=== PATIENT | male | born 1995 | race Caucasian/White ===

== ENCOUNTER 2016-08-13 10:17 | Emergency (ER) | payer OTHER ==
[~2016-08-13] VITALS: Ht 170.2 cm; Wt 91.5 kg
[2016-08-13 10:19] VITALS: Ht 170.2 cm; Wt 91.5 kg
[2016-08-13] MEDS ORDERED: IBUPROFEN 600 MG TAB PO ONE (11:00)
[2016-08-13] MEDS ORDERED: CEPHALEXIN 500 MG CAP PO ONE (11:00)
[2016-08-13] MEDS ORDERED: LIDOCAINE 1% (MDV) 20 ML INJ SC ONE (11:00)
[2016-08-13] MEDS ORDERED: DOXY100T20 PO (11:31)
[2016-08-13] MEDS ORDERED: IBUP-1542 PO (11:31)
--- NOTE | 2016-08-13 11:37 | ERD ---
ER Documentation Chief Complaint Date/Time DATE: 08/13/16 TIME: 11:35 Chief Complaint rt big toe ingrown toe nail HPI This 21-year-old male complains of redness and swelling associated the ingrown toenails right big toe worsening over the last month. He has a history of treatment for ingrown nail approximately a year ago. Denies fevers, vomiting, shortness breath chest pain or history of trauma. ROS All systems reviewed and are negative except as per history of present illness. Medications Home Meds Active Scripts Doxycycline Hyclate* (Doxycycline Hyclate*) 100 Mg Tablet.dr, 100 MG PO BID for 10 Days, TAB Prov:QUYNH LO MD 08/13/16 Ibuprofen* (Motrin*) 600 Mg Tab, 600 MG PO Q6, #15 TAB Prov:QUYNH LO MD 08/13/16 Reported Medications [None] No Conflict Check 04/26/13 Allergies Allergies: Coded Allergies: No Known Allergy (Unverified , 04/26/13) PMhx/Soc Medical and Surgical Hx: pt denies Medical Hx, pt denies Surgical Hx History of Surgery: No Anesthesia Reaction: No Hx Neurological Disorder: No Hx Respiratory Disorders: No Hx Cardiac Disorders: No Hx Psychiatric Problems: No Hx Miscellaneous Medical Probl: No Hx Alcohol Use: No Hx Substance Use: No Hx Tobacco Use: No Smoking Status: Never smoker Physical Exam Vitals Vital Signs Date Time Temp Pulse Resp B/P Pulse Ox O2 Delivery O2 Flow Rate FiO2 08/13/16 10:19 97.4 71 16 137/79 98 Physical Exam Const: [] Alert, [id number] per Head: Atraumatic Eyes: Normal Conjunctiva ENT: Normal External Ears, Nose and Mouth. Neck: Full range of motion..~ No meningismus. Resp: Clear to auscultation bilaterally Cardio: Regular rate and rhythm, no murmurs Abd: Soft, non tender, non distended. Normal bowel sounds Skin: No petechiae or rashes Back: No midline or flank tenderness Ext: No cyanosis, or edema. There is some redness and needs significant swelling on the bilateral edges of the right big toenail associated with ingrown toenails. There is no bony tenderness or deformities. There is no discharge or bleeding Neur: Awake and alert Psych: Normal Mood and Affect Results 24 hrs Current Medications Medications (Trade) Dose Ordered Sig/Jordan Route PRN Reason Start Time Stop Time Status Last Admin Dose Admin Cephalexin (Keflex) 500 mg ONCE ONCE PO 08/13/16 11:00 08/13/16 11:01 DC 08/13/16 11:08 Ibuprofen (Motrin) 600 mg ONCE ONCE PO 08/13/16 11:00 08/13/16 11:01 DC 08/13/16 11:08 Lidocaine (Xylocaine 1% (Mdv) 20 ml) 20 ml ONCE ONCE SC 08/13/16 11:00 08/13/16 11:01 DC Procedures/MDM Patient has signs and symptoms of significantly inflamed possibly infected ingrown toenail on the right big toe. Signs and symptoms do not suggest bony tenderness of osteomyelitis, or abscess. Procedure note-patient was given Keflex 500 mg of mouth and ibuprofen by mouth. 8 cc of lidocaine was used to perform a digital block. Anesthesia was obtained. Bilateral edges of the nail which are ingrown or removed using clamps and scissors. The wound bed was debrided. The wound was dressed and patient tolerated procedure well. Patient was placed in a right foot postop shoe and an wound was dressed. Patient will be discharged home with prescription ibuprofen and doxycycline instructions for wound care. He will be referred to podiatry for further evaluation management for recurrent symptoms. He should return sooner for worsening redness, fevers, new worsening symptoms Departure Diagnosis: Primary Impression: Ingrown nail Condition: Stable Patient Instructions: Ingrown Toenail, Excised Referrals: CRESCENCIO QUINTANA DPBHAVESH GRIFFIN DPNOAH MCDONALD DPSung Additional Instructions: Recheck for worsening redness, swelling, new worsening symptoms. Allow the nail to go on top of skin. See podiatry for recurrent symptoms. QUYNH LO MD Aug 13, 2016 11:37
== END 2016-08-13 12:07 | disposition home or self-care (01) ==
LOC: FTE 10:17
DX: L60.0 Ingrowing nail (principal)
CPT/HCPCS: 11765; Z7502; Z7610

== ENCOUNTER 2017-01-25 10:01 | Emergency (ER) | payer OTHER ==
[~2017-01-25] VITALS: Ht 167.6 cm; Wt 87.9 kg
[~2017-01-25 10:01] MED LIST: DOXY100T20 PO; IBUP-1542 PO
[2017-01-25 10:02] VITALS: Ht 167.6 cm; Wt 87.9 kg
[2017-01-25] MEDS ORDERED: TRIMETHOPRIM/SULFAMETHOX (DS) TAB PO ONE (10:30)
[2017-01-25] MEDS ORDERED: LIDOCAINE 1% (MDV) 20 ML INJ SC ONE (10:30)
[2017-01-25] MEDS ORDERED: CEPHALEXIN 500 MG CAP PO ONE (10:30)
--- NOTE | 2017-01-25 10:46 | ERD ---
ER Documentation Chief Complaint Chief Complaint ingrown toenail HPI 21-year-old male presents with recurring right-sided great toe ingrown toe nail. Patient has been dealing with pain for about 2 months now and is now become more swollen, erythematous and warm. 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 He does not have any history of diabetes or trauma fevers or chills. ROS All systems reviewed and are negative except as per history of present illness. Medications Home Meds Active Scripts Ibuprofen* (Motrin*) 600 Mg Tab, 600 MG PO Q6, #30 TAB Prov:ELLIE PRAJAPATI PA-C 01/25/17 Sulfamethoxazole/Trimethoprim* (Bactrim Ds* Tablet) 1 Each Tablet, 1 TAB PO BID , #14 TAB Prov:ELLIE PRAJAPATI PA-C 01/25/17 Cephalexin* (Keflex*) 500 Mg Capsule, 500 MG PO QID for 7 Days, CAP Prov:ELLIE PRAJAPATI PA-C 01/25/17 Doxycycline Hyclate* (Doxycycline Hyclate*) 100 Mg Tablet.dr, 100 MG PO BID for 10 Days, TAB Prov:QUYNH LO MD 08/13/16 Ibuprofen* (Motrin*) 600 Mg Tab, 600 MG PO Q6, #15 TAB Prov:QUYNH LO MD 08/13/16 Reported Medications [None] No Conflict Check 04/26/13 Allergies Allergies: Coded Allergies: No Known Allergy (Unverified , 04/26/13) PMhx/Soc History of Surgery: No Anesthesia Reaction: No Hx Neurological Disorder: No Hx Respiratory Disorders: No Hx Cardiac Disorders: No Hx Psychiatric Problems: No Hx Miscellaneous Medical Probl: No Hx Alcohol Use: No Hx Substance Use: No Hx Tobacco Use: No Physical Exam Vitals Vital Signs Date Time Temp Pulse Resp B/P Pulse Ox O2 Delivery O2 Flow Rate FiO2 01/25/17 10:02 98.1 93 18 147/88 99 Physical Exam General: Well-developed, well-nourished. The patient appears in no acute distress. HEENT: Head is normocephalic, atraumatic. No scleral icterus. Neck: Supple. Nontender. Lungs: Clear to auscultation. Normal air movement. Heart: Regular rate and rhythm. S1 and S2 are normal. No murmurs, gallops, or rubs. Abdomen: Nondistended. Extremities: No clubbing or cyanosis. Moving extremities x 4. No weakness. Neurologic: Alert and oriented 3. No focal deficits. Normal speech and gait. Skin: Large ingrown toenail of the right great toe that is on the medial aspect , there is warmth, erythema and induration around the nailbed. Capillary refill less than 2 seconds. Results 24 hrs Current Medications Medications (Trade) Dose Ordered Sig/Jordan Route PRN Reason Start Time Stop Time Status Last Admin Dose Admin Cephalexin (Keflex) 500 mg ONCE ONCE PO 01/25/17 10:30 01/25/17 10:31 DC 01/25/17 10:42 Trimethoprim/ Sulfamethoxazole (Bactrim (Ds)) 1 tab ONCE ONCE PO 01/25/17 10:30 01/25/17 10:31 DC 01/25/17 10:42 Lidocaine (Xylocaine 1% (Mdv) 20 ml) 20 ml ONCE ONCE SC 01/25/17 10:30 01/25/17 10:31 DC 01/25/17 10:42 Procedures/MDM Procedure: Right great toe Ingrown Toenail removal: patient was verbally consented. Patient's great toe was prepped with Betadine. Digital block was done with lidocaine 1% without epinephrine, approximately 7 cc. Patient had good local anesthetic effect achieved. Foreceps were used to lift the nailbed, as well as scissors to cut just distal to the cuticle the medial 50% of the nail. Hemostat was used, was clamped onto the toenail, and flipped for removal. It was minor bleeding, hemostasis was achieved. Patient was neurovascularly intact postprocedure. Clean dressing was applied, patient was placed in a postop shoe. Patient is to follow-up with the co founder & ceo, he was asked with his doctor today to get a referral. Discharge of Keflex, Bactrim and ibuprofen. Departure Diagnosis: Primary Impression: Ingrown right big toenail Condition: ELLIE Garcia PA-C Jan 25, 2017 10:46
[2017-01-25] MEDS ORDERED: IBUP-1542 PO (10:47)
[2017-01-25] MEDS ORDERED: SULF1TAB31 PO (10:47)
[2017-01-25] MEDS ORDERED: CEPH-443 PO (10:47)
== END 2017-01-25 11:28 | disposition home or self-care (01) ==
LOC: FTE 10:01
DX: L60.0 Ingrowing nail (principal)
CPT/HCPCS: 11765; Z7502; Z7610